=== PATIENT | male | born 1950 | race Caucasian/White ===

== ENCOUNTER 2016-08-27 01:41 | Emergency (ER) | payer MEDICARE, OTHER ==
[2016-08-27 02:05] VITALS: BP 116/70
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
[2016-08-27] MEDS ORDERED: HYDROmorphone 1 MG/ML Syringe IVPUSH ONE (02:23)
[2016-08-27] MEDS ORDERED: Metoclopramide 10 MG/2 ML SDV IVPUSH ONE (02:23)
[2016-08-27] MEDS ORDERED: Sodium Chloride 0.9% 1,000 ML IV SCH (02:30)
--- NOTE | 2016-08-27 11:23 | CR ---
Lumbar spine: AP, lateral and coned-down lateral views centered to the lumbosacral junction were obtained. Comparison: Previous study of 10/09/15. Extensive surgery is noted within the lower thoracic and lumbar spine. Fracturing is identified within the lateral right-sided miriam at the L2 level. Orthopedic hardware otherwise appears intact. Diffuse endplate osteophytes are seen. No abnormal subluxation is identified. Impression: 1. Fracturing of the orthopedic hardware at the L2 level involving the right-sided miriam. This is believed to be present on prior exam but better seen currently due to technique. 2. Diffuse degenerative change which appears stable. Interval placement of intervertebral fixation device within the L1-L2 disc space. 3. Nothing acute is definitely seen. Diagnostic code #2
--- NOTE | 2016-08-27 11:23 | CR ---
Pelvis: AP view of the pelvis was obtained. Previous lumbar spine surgery is again noted. Joint spaces within both hips are fairly well-preserved. No fracture or other abnormality is identified. Impression: 1. Previous lumbar spine surgery. No acute abnormality is identified on AP pelvis study. Diagnostic code #2
== END 2016-08-27 04:15 | disposition home or self-care (01) ==
LOC: JD.ED 01:41
DX: S39.012A Strain of muscle, fascia and tendon of lower back, initial encounter (principal); S70.01XA Contusion of right hip, initial encounter; W01.0XXA Fall on same level from slipping, tripping and stumbling without subsequent striking against object, initial encounter; Y92.009 Unspecified place in unspecified non-institutional (private) residence as the place of occurrence of the external cause; I10 Essential (primary) hypertension; G47.30 Sleep apnea, unspecified; E11.9 Type 2 diabetes mellitus without complications; Z98.890 Other specified postprocedural states; Z98.1 Arthrodesis status; Z90.81 Acquired absence of spleen; Z79.84 Long term (current) use of oral hypoglycemic drugs; Z79.899 Other long term (current) drug therapy; Z88.8 Allergy status to other drugs, medicaments and biological substances
CPT/HCPCS: 72100; 72170; 96361; 96374; 96375; 99284; J1170; J2765; J7040

== ENCOUNTER 2016-09-04 14:21 | Emergency (ER) | payer MEDICARE, OTHER ==
[2016-09-04 14:40] VITALS: BP 157/100
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
== END 2016-09-04 16:25 | disposition home or self-care (01) ==
LOC: JD.ED 14:21
DX: M54.5 Low back pain (principal); M17.11 Unilateral primary osteoarthritis, right knee; I10 Essential (primary) hypertension; G47.30 Sleep apnea, unspecified; E11.9 Type 2 diabetes mellitus without complications; Z98.890 Other specified postprocedural states; Z98.1 Arthrodesis status; Z79.84 Long term (current) use of oral hypoglycemic drugs; Z79.899 Other long term (current) drug therapy; Z88.8 Allergy status to other drugs, medicaments and biological substances
CPT/HCPCS: 99283

== ENCOUNTER 2021-12-01 11:36 | Emergency (ER) | payer MEDICARE, OTHER ==
[2021-12-01 11:49] VITALS: BP 136/81; PULSE 91
== END 2021-12-01 13:15 | disposition home or self-care (01) ==
LOC: JD.ED 11:36
DX: S20.212A Contusion of left front wall of thorax, initial encounter (principal); I10 Essential (primary) hypertension; E11.9 Type 2 diabetes mellitus without complications; Z88.8 Allergy status to other drugs, medicaments and biological substances; Z79.84 Long term (current) use of oral hypoglycemic drugs; W18.30XA Fall on same level, unspecified, initial encounter
CPT/HCPCS: 71101-26-LT; 71101-LT; 99283